=== PATIENT | female | born 1965 | race Hispanic/Latino ===

== ENCOUNTER 2016-10-30 20:45 | Inpatient (IN) | payer OTHER ==
[2016-10-30 21:30] LABS: Basophils % (Auto) 1.1 % (0.0-1.8); Eosinophils % (Auto) 1.3 % (0.0-4.3); Hematocrit 45.8 % (30.3-42.9); Hemoglobin 15.9 gm/dl (10.1-14.3); Mean Corpuscular HGB Conc 35 % (30-34); Mean Corpuscular Hemoglobin 31 pg (28-32); Mean Corpuscular Volume 90 fl (79-97); Platelet Count 211 K/mm3 (140-440); Red Blood Count 5.11 M/mm3 (3.65-5.03); Red Cell Distribution Width 14.4 % (13.2-15.2); White Blood Count 10.3 K/mm3 (4.5-11.0)
[2016-10-30 21:52] LABS: Anion Gap 23 mmol/L; BUN/Creatinine Ratio 18.33; Blood Urea Nitrogen 11 mg/dL (7-17); Calcium 9.4 mg/dL (8.4-10.2); Carbon Dioxide 21 mmol/L (22-30); Chloride 95.3 mmol/L (98-107); Glucose 411 mg/dL (65-100); Sodium 135 mmol/L (137-145)
[2016-10-30] MEDS ORDERED: ASPIRIN PO ONE (21:57)
[2016-10-30] MEDS ORDERED: NITRO-BID 2% TP ONE (21:57)
[2016-10-30] MEDS ORDERED: ZOFRAN IV ONE (21:57)
--- NOTE | 2016-10-30 22:01 | Emergency Department Report ---
ED Chest Pain HPI - General Chief Complaint: Chest Pain Stated Complaint: CHEST PAIN Time Seen by Provider: 10/30/16 21:49 Source: patient Mode of arrival: Ambulatory Limitations: No Limitations - History of Present Illness Initial Comments: 51 year old female with a past medical history hypertension, smoking, diabetes, and elevated cholesterol presents to the hospital complaints of chest pain 3 days. Pain is in the middle of the chest, described as intermittent tightness and exacerbated with activity. Pain radiates to both shoulders and rated moderate to severe in intensity. Patient noticing dyspnea and fatigue on exertion. Positive nausea without vomiting. Patient has been noncompliant with all her medications for the last 8 months and does not have a primary care doctors and she lost her insurance at this time. She reports a stress test approximately 4-5 years ago. Denies family history of CAD Severity scale (0 -10): 0 - Related Data Home Medications Medication Instructions Recorded Confirmed Last Taken No Known Home Medications [No 10/30/16 10/30/16 Unknown Reported Home Medications] Allergies Allergy/AdvReac Type Severity Reaction Status Date / Time tramadol HCl [From Ultram] Allergy Vomiting Verified 10/30/16 21:02 NIURKA score - Niurka Score Age > 65: (0) No Aspirin use within the Past 7 Days: (1) Yes 3 or more CAD Risk Factors: (1) Yes 2 or more Angina events in past 24 hrs: (1) Yes Known CAD with more than 50% Stenosis: (0) No Elevated Cardiac Markers: (0) No ST Deviation Greater than 0.5mm: (0) No NIURKA Score: 3 ED Review of Systems ROS: Stated complaint: CHEST PAIN Other details as noted in HPI Comment: All other systems reviewed and negative Other: Constitutional: No fevers chills. Weight loss reported Eyes: No eye pain visual changes ENT: No ear pain or throat pain Neck: Denies pain Respiratory: Denies cough wheezing Cardiovascular: Denies , palpitations, syncope GI: Denies abdominal pain,vomiting, diarrhea : Denies dysuria Musculoskeletal: Denies back pain, joint swelling Skin: Denies rash, lesions, erythema Neurologic: Denies headache, numbness, weakness Psychiatric: Denies suicidal ideation, hallucinations ED Past Medical Hx - Past Medical History Previous Medical History?: Yes Hx Hypertension: Yes Hx Diabetes: Yes Additional medical history: HIGH CHOLESTEROL - Surgical History Past Surgical History?: Yes Additional Surgical History: TUBAL LIGATION - Social History Smoking Status: Current Every Day Smoker Substance Use Type: Alcohol - Medications Home Medications: Home Medications Medication Instructions Recorded Confirmed Last Taken Type No Known Home Medications [No 10/30/16 10/30/16 Unknown History Reported Home Medications] ED Physical Exam - General Limitations: No Limitations - Other Other exam information: General: No limitations, patient is alert in no acute distress Head exam: Atraumatic, normocephalic Eyes exam: Normal appearance ENT: Moist mucous membrane, normal oropharynx Neck exam: Normal inspection, full range of motion, no meningismus nontender Respiratory exam: Clear to auscultation bilateral, no wheezes, rales, crackles Cardiovascular: Normal rate and rhythm, normal heart sounds Abdomen: Soft, nondistended, and nontender, with normal bowel sounds, no rebound, or guarding Extremity: Full range of motion normal inspection no deformity, no calf tenderness or edema Back: Normal Inspection, full range of motion, no tenderness Neurologic: Alert, oriented x3, cranial nerves intact, no motor or sensory deficit Psychiatric: normal affect, normal mood Skin: Warm, dry, intact ED Course Vital Signs 10/30/16 10/30/16 10/30/16 21:03 21:40 21:45 Temperature 97.8 F Pulse Rate 78 83 Respiratory 20 20 20 Rate Blood Pressure 221/93 Blood Pressure 182/90 [Left] O2 Sat by Pulse 98 97 Oximetry 10/30/16 22:23 Temperature Pulse Rate 79 Respiratory Rate Blood Pressure 182/90 Blood Pressure [Left] O2 Sat by Pulse Oximetry - Reevaluation(s) Reevaluation #1: 10/30/16 21:59 Aspirin, Nitropaste, Zofran, portable chest x-ray, regular insulin, and lovenox ordered - Consultations Consultation #1: 10/30/16 22:[address] Peralta. EKG reviewed. Recommends Lovenox twice a day initial dose orders. Plan for stress test in the a.m. ED Medical Decision Making - Lab Data Result diagrams: 10/30/16 21:16 10/30/16 21:16 Lab Results 10/30/16 10/30/16 Range/Units 21:16 21:16 WBC 10.3 (4.5-11.0) K/mm3 RBC 5.11 H (3.65-5.03) M/mm3 Hgb 15.9 H (10.1-14.3) gm/dl Hct 45.8 H (30.3-42.9) % MCV 90 (79-97) fl MCH 31 (28-32) pg MCHC 35 H (30-34) % RDW 14.4 (13.2-15.2) % Plt Count 211 (140-440) K/mm3 Lymph % (Auto) 42.5 H (13.4-35.0) % [place] % (Auto) 7.2 (0.0-7.3) % Eos % (Auto) 1.3 (0.0-4.3) % Baso % (Auto) 1.1 (0.0-1.8) % Lymph # 4.4 (1.2-5.4) K/mm3 [place] # 0.7 (0.0-0.8) K/mm3 Eos # 0.1 (0.0-0.4) K/mm3 Baso # 0.1 (0.0-0.1) K/mm3 Seg Neutrophils % 47.9 (40.0-70.0) % Seg Neutrophils # 4.9 (1.8-7.7) K/mm3 Sodium 135 L (137-145) mmol/L Potassium 4.0 (3.6-5.0) mmol/L Chloride 95.3 L (98-107) mmol/L Carbon Dioxide 21 L (22-30) mmol/L Anion Gap 23 mmol/L BUN 11 (7-17) mg/dL Creatinine 0.6 L (0.7-1.2) mg/dL Estimated GFR > 60 ml/min BUN/Creatinine Ratio 18.33 % Glucose 411 H (65-100) mg/dL Calcium 9.4 (8.4-10.2) mg/dL Troponin T < 0.010 (0.00-0.029) ng/mL - EKG Data -: EKG Interpreted by Me (sinus rate 83 septal infarct, inferior and ant- lateral T wave inversion) - EKG Data When compared to previous EKG there are: previous EKG unavailable - Radiology Data Radiology results: report reviewed (Cxr: naf) - Medical Decision Making Plans admit patient to hospital for further cardiac evaluation given her risk factors and abnormal EKG. Initial enzymes negative. Cardiology consulted - Differential Diagnosis my, unstable angina, PE, atypical chest pain, hypertensive emergency Critical Care Time: No Critical care attestation.: If time is entered above; I have spent that time in minutes in the direct care of this critically ill patient, excluding procedure time. ED Disposition Clinical Impression: Chest pain, Uncontrolled hypertension, Uncontrolled diabetes mellitus, Noncompliance with medication regimen, T wave inversion in EKG Disposition: OP ADMITTED IP TO THIS HOSP Is pt being admited?: Yes Condition: Stable Time of Disposition: 22:04 (Dr Reed/hosp)
[2016-10-30] MEDS ORDERED: LOVENOX SUB-Q ONE (22:14)
[2016-10-30] MEDS ORDERED: SODIUM CHLORIDE FLUSH SYRINGE 10 ML IV PRN (22:36)
[2016-10-30] MEDS ORDERED: NITROSTAT SL PRN (22:36)
[2016-10-30] MEDS ORDERED: D50W (25GM) IV PRN (22:52)
--- NOTE | 2016-10-31 00:36 | History and Physical Report ---
CHIEF COMPLAINT: Chest pain. HISTORY OF PRESENT ILLNESS: The patient is a 51-year-old female who said she has been having tightness in the chest going on and off for about 2-3 weeks, but became worse in the last 24-48 hours. Pain is exacerbated with activity and radiates to both shoulders and moderate in intensity and associated with shortness of breath, dizziness, nausea or diaphoresis, but no vomiting. The patient is noncompliant with medications for the last 6-8 months and does not have a primary care doctor. The patient has lost her insurance recently. The patient had a stress test done about 4-5 years ago. Denies history of fever or chills. Denies history of cough. She was evaluated in the Emergency Room and presented for admission. PAST MEDICAL HISTORY: Pertinent for hypertension, diabetes mellitus with noncompliance. Also, the patient has past medical history of high cholesterol. PAST SURGICAL HISTORY: Pertinent for tubal ligation. FAMILY HISTORY: Pertinent for cerebrovascular accident. SOCIAL HISTORY: The patient smokes cigarettes, drinks alcohol and does not use illicit drugs. MEDICATIONS: The patient has not been on any medications recently. ALLERGIES: The patient is allergic to TRAMADOL or ULTRAM. REVIEW OF SYSTEMS: CONSTITUTIONAL: There is no fever, no chills. Diaphoresis present. HEENT: There is no headache or sore throat. CARDIOVASCULAR SYSTEM: Chest pain present. No orthopnea. RESPIRATORY SYSTEM: Shortness of breath is present. There is no cough. GASTROINTESTINAL SYSTEM: There is nausea, but no vomiting, no abdominal pain, diarrhea or constipation. NEUROLOGICAL SYSTEM: Dizziness present. No altered mental status. MUSCULOSKELETAL SYSTEM: There is no joint pain or swelling. DERMATOLOGICAL SYSTEM: There is no skin rash or itching. GENITOURINARY SYSTEM: There is no dysuria, hematuria or flank pain. Rest of system review is normal. PHYSICAL EXAMINATION: GENERAL: At the time of exam, the patient was found to be alert, oriented x 3 and not in acute distress. VITAL SIGNS: Shows normal temperature of 97.8, pulse of 83, respirations of 20, blood pressure of 182/90, O2 sat of 97% on room air. HEENT: Show pupils to be equal, round, reactive to light and accommodating. Extraocular muscles are intact. NECK: Supple with no JVD or carotid bruit. CARDIOVASCULAR SYSTEM: Show first and second heart sounds with no gallops or murmur. RESPIRATORY SYSTEM: Show good air entry on both sides with no abnormal breath sounds. GASTROINTESTINAL SYSTEM: Show abdomen to be full, soft, and nontender with no organomegaly or rigidity. NEUROLOGICAL: Show no focal deficit. MUSCULOSKELETAL SYSTEM: Show no joint swelling or tenderness. DERMATOLOGICAL SYSTEM: Show no skin rash. GENITOURINARY SYSTEM: Showing no costovertebral angle tenderness. PERTINENT LABORATORY DATA: The patient has chemistry done with slight decrease in sodium of 135, normal potassium and low chloride of 95.3 and low CO2 of 21 with high glucose level of 411 and normal troponin level. CBC shows normal white count, high hemoglobin of 15.9, high hematocrit of 45.8. IMAGING STUDIES: The patient had a chest x-ray done with no report of any acute lesion from the Emergency Room. DIAGNOSES: 1. Chest pain, 2. Poorly controlled diabetes mellitus. PLAN: The patient will be admitted to medical floor on telemetry. Using chest pain pathway, he will be on IV morphine per chest pain protocol. The patient will also be on IV Zofran 4 mg every 6 hours for nausea and vomiting and will be on nitro paste 1 inch to anterior chest wall q.6 hours. The patient will be on Tylenol by mouth as needed for fever and headache and will be n.p.o. for Lexiscan stress test in the morning. The patient will be on Accu-Chek q.4 h. followed by low-dose sliding scale and will be on aspirin 325 mg by mouth daily. The patient will be on heparin 5000 units subQ q.12 for DVT prophylaxis and will continue Cardiology consult with Dr. Peralta, already put in by the Emergency Room doctor. The patient will have cardiac enzymes, troponin, and total CPK check q.6 hours x 2 more levels and will be on oxygen per chest pain protocol. JOB# [id number] OCN/NTS
[2016-10-31 00:45] LABS: Creatine Kinase 40 units/L (30-135)
[2016-10-31 00:46] LABS: Creatine Kinase MB < 1.0 ng/mL (0.0-4.0)
[2016-10-31] MEDS: MORPHINE IV PRN (05:19)
[2016-10-31] MEDS: NITRO-BID 2% TP SCH ×3 (05:21→17:58)
[2016-10-31] MEDS: APRESOLINE IV PRN ×2 (06:55→11:23)
[2016-10-31] MEDS ORDERED: LEXISCAN IV ONE ×2 (09:07→09:25)
--- NOTE | 2016-10-31 10:04 | XRay Report ---
AP CHEST : 10/30/16 20:45:00 CLINICAL: Chest pain and shortness of breath. COMPARISON:None FINDINGS: The heart is large. Normal pulmonary vessels. The lungs are normally expanded and clear. The bones and soft tissues are unremarkable. IMPRESSION: Cardiomegaly but no CHF.
--- NOTE | 2016-10-31 10:10 | Consultation ---
History of Present Illness Consult date: 10/31/16 Consult reason: chest pain History of present illness: Shortness breath with exertion of few weeks,with worsening chest pain (anterior chest pain,radiating to both arms)of few days duration.No previous hx.of similar symptoms. Past History Past Medical History: diabetes, hypertension Past Surgical History: Other (tubal ligation) Social history: (5 children.), smoking (since age 15.), alcohol abuse ( says drinks a lot.). denies: IV drug use Medications and Allergies Allergies Allergy/AdvReac Type Severity Reaction Status Date / Time tramadol HCl [From Ultram] Allergy Vomiting Verified 10/30/16 21:02 Home Medications Medication Instructions Recorded Confirmed Last Taken Type Aspirin [Aspirin BABY CHEW TAB] 81 mg PO QDAY #30 tab.chew 10/31/16 Unknown Rx AtorvaSTATin [Lipitor] 10 mg PO HS #30 tablet 10/31/16 Unknown Rx Bisoprolol Fumarate [Zebeta] 10 mg PO DAILY #30 tab 10/31/16 Unknown Rx Losartan [Cozaar] 25 mg PO QDAY #30 tablet 10/31/16 Unknown Rx glipiZIDE [Glucotrol] 10 mg PO QDAY #30 tablet 10/31/16 Unknown Rx metFORMIN [Glucophage] 500 mg PO BID #60 tablet 10/31/16 Unknown Rx Active Meds: Active Medications Aspirin (Ecotrin) 325 mg PO QDAY [facility] Dextrose (D50w (25gm)) 50 ml IV PRN PRN PRN Reason: Hypoglycemia Heparin Sodium (Porcine) (Heparin) 5,000 unit SUB-Q Q12HR [facility] Hydralazine HCl (Apresoline) 20 mg IV Q4HR PRN PRN Reason: Blood Pressure Last Admin: 10/31/16 06:55 Dose: 20 mg Insulin Human Regular (Novolin R) 0 units SUB-Q Q6HR [facility] PRN Reason: Protocol Last Admin: 10/31/16 06:54 Dose: Not Given Morphine Sulfate (Morphine) 2 mg IV Q5MIN PRN PRN Reason: Chest Pain Last Admin: 10/31/16 05:19 Dose: 2 mg Nitroglycerin (Nitrostat) 0.4 mg SL Q5M PRN PRN Reason: Chest Pain Nitroglycerin (Nitro-Bid 2%) 1 inch TP TIDNTG [facility] PRN Reason: Protocol Last Admin: 10/31/16 05:21 Dose: 1 inch Sodium Chloride (Sodium Chloride Flush Syringe 10 Ml) 10 ml IV PRN PRN PRN Reason: LINE FLUSH Review of Systems Constitutional: weight loss (lost lot of weight in last few weeks,unintentional. ) Ears, nose, mouth and throat: no ear discharge Breasts: deferred Cardiovascular: chest pain, shortness of breath Respiratory: no cough with sputum Gastrointestinal: nausea Genitourinary Female: no dysuria Rectal: no pain Musculoskeletal: neck stiffness, other (leg pains,not muscle pains according to her.) Integumentary: no rash Neurological: headaches Psychiatric: no memory loss Endocrine: no cold intolerance Hematologic/Lymphatic: no easy bruising Allergic/Immunologic: no urticaria Physical Examination Vital Signs Temp Pulse Resp BP Pulse Ox 97.8 F 78 20 221/93 98 10/30/16 21:03 10/30/16 21:03 10/30/16 21:03 10/30/16 21:03 10/30/16 21:03 General appearance: no acute distress HEENT: Positive: PERRL, Mucus Membranes Moist Neck: Positive: neck supple, trachea midline Cardiac: Positive: Reg Rate and Rhythm Lungs: Positive: clear to auscultation Neuro: Positive: Grossly Intact Abdomen: Positive: Unremarkable Female genitourinary: deferred Skin: Negative: Rash Extremities: Absent: edema Results 10/30/16 21:16 10/30/16 21:16 Cardiac Enzymes 10/31/16 Range/Units 00:07 CK-MB (CK-2) < 1.0 (0.0-4.0) ng/mL - Imaging and Cardiology EKG: image reviewed (S.R with deep T inversions in inferior and precordial leads c/w ischemia.) EKG interpretations - Telemetry EKG Rhythm: Sinus Rhythm Assessment and Plan - Patient Problems (1) Chest pain Current Visit: Yes Status: Acute Qualifiers: Chest pain type: C Plan to address problem: was admitted with chest pain 2 -3 weeks duration.Chest pains are consistent with crescendo angina,with multiple risk factors,(HTN,D.M and smoking), also iv Lexiscan MPI showed reversible apical defect.Would recommend cardiac cath .patient is willing to proceed with it. (2) Noncompliance with medication regimen Current Visit: Yes Status: Acute (3) T wave inversion in EKG Current Visit: Yes Status: Acute (4) Uncontrolled diabetes mellitus Current Visit: Yes Status: Acute Qualifiers: Diabetes mellitus type: D Diabetes mellitus complication status: D Diabetes mellitus complication detail: D Diabetic retinopathy severity: D Diabetes mellitus macular edema: D Diabetes mellitus tank terminal gauger insulin use: D Chronic kidney disease stage: C (5) Uncontrolled hypertension Current Visit: Yes Status: Acute
[2016-10-31] MEDS: HEPARIN SUB-Q SCH ×2 (11:19→21:18)
[2016-10-31] MEDS: ECOTRIN PO SCH (11:19)
[2016-10-31 11:53] LABS: Creatine Kinase MB 1.1 ng/mL (0.0-4.0)
[2016-10-31 11:54] LABS: Creatine Kinase 32 units/L (30-135)
--- NOTE | 2016-10-31 12:17 | Discharge Summary ---
Providers - Providers Date of Admission: 10/30/16 22:35 Date of discharge: 11/02/16 Attending physician: ANAMIKA TURPIN 10/30/16 Consult to Cardiac Rehabilitation [CONS] Routine Reason For Exam: Phase I Primary care physician: [facility] Hospitalization Condition: Stable Hospital course: Patient seen and examined. Patient complains of substernal chest pain, Cardiac enzymes negative, EKG abnormal, chest x-ray cardiomegaly without CHF. She is from [place], [place] and has been out of all her medications for some time now. She will go back to [place], [place]. She is on metformin bid, glyburide bid, bisoprolol daily, losartan daily and atorvastatin daily. She does not know the doses of any of her medications and needs all refilled. -Chest pain had positive stress test and went for Cardiac cath. 11/02/[address] Flaherty -Type 2 diabetes mellitus, uncontrolled -Accelerated Hypertension counseling restart her antihypertensive -DLP: statins -noncompliance counseling done Disposition: DISCHARGED TO HOME OR SELFCARE Time spent for discharge: 37 minutes Core Measure Documentation - Palliative Care Palliative Care/ Comfort Measures: Not Applicable - Core Measures Any of the following diagnoses?: none - VTE Discharge Requirements Deep Vein Thrombosis/Pulmonary Embolism Present on Admission: No Has pt received <5 days of overlap therapy or INR<2.0: No Anticoagulant overlap therapy prescribed at discharge: No Contraindication No Overlap Therapy order at DC: Not Indicated Exam - Physical Exam Narrative exam: GEN: WDWN, NAD, AWAKE, ALERT, ORIENTATED 3 CVS: RRR, NORMAL S1S2 LUNGS/CHEST: CTA B, NORMAL CHEST EXPANSION B, GOOD AIR ENTRY B, reproducible chest wall tenderness NEURO: CN 2-12 GROSSLY INTACT, NO new FOCAL DEFICITS PSY: CALM - Constitutional Vitals: Temp Pulse Resp BP Pulse Ox 98.1 F 73 16 205/92 97 10/31/16 11:17 10/31/16 11:17 10/31/16 11:17 10/31/16 11:23 10/31/16 11:17 Plan Activity: advance as tolerated (no strenous activites until cleared by PCP. ) Diet: low salt, diabetic Special Instructions: record daily BP diary, record blood sugar diary Follow up with: PRIMARY CARE, [Primary Care Provider] - 3-5 Days Prescriptions: RX: Aspirin [Aspirin BABY CHEW TAB] 81 mg PO QDAY #30 tab.chew RX: AtorvaSTATin [Lipitor] 10 mg PO HS #30 tablet Bisoprolol Fumarate [Zebeta] 10 mg PO DAILY #30 tab glipiZIDE [Glucotrol] 10 mg PO QDAY #30 tablet RX: Losartan [Cozaar] 25 mg PO QDAY #30 tablet RX: metFORMIN [Glucophage] 500 mg PO BID #60 tablet
[2016-10-31 12:33] LABS: Creatine Kinase 33 units/L (30-135); Creatine Kinase MB 1.1 ng/mL (0.0-4.0)
--- NOTE | 2016-10-31 13:46 | Progress Note ---
Assessment and Plan Assessment and plan: Patient seen and examined. Patient complains of substernal chest pain, which is totally reproducible. Cardiac enzymes negative, EKG abnormal, chest x-ray cardiomegaly without CHF. -Chest pain most likely costochondritis -Type 2 diabetes mellitus, uncontrolled -Accelerated Hypertension History Interval history: Pt seen and examined. f/u for cp which she has off and on, none currently. no n/ v/sob/cough. She is not up to date with preventive screening, which i spoke with her at length. Especially mammogram. She agreed and voiced understanding. Hospitalist Physical - Physical exam Narrative exam: GEN: WDWN, NAD, AWAKE, ALERT, ORIENTATED 3 CVS: RRR, NORMAL S1S2 LUNGS/CHEST: CTA B, NORMAL CHEST EXPANSION B, GOOD AIR ENTRY B, reproducible chest wall tenderness NEURO: CN 2-12 GROSSLY INTACT, NO new FOCAL DEFICITS PSY: CALM - Constitutional Vitals: Temp Pulse Resp BP Pulse Ox 98.1 F 73 16 205/92 97 10/31/16 11:17 10/31/16 11:17 10/31/16 11:17 10/31/16 11:23 10/31/16 11:17 General appearance: Present: no acute distress Results - Labs CBC & Chem 7: 10/30/16 21:16 10/30/16 21:16 Labs: Laboratory Last Values WBC 10.3 K/mm3 (4.5-11.0) 10/30/16 21:16 RBC 5.11 M/mm3 (3.65-5.03) H 10/30/16 21:16 Hgb 15.9 gm/dl (10.1-14.3) H 10/30/16 21:16 Hct 45.8 % (30.3-42.9) H 10/30/16 21:16 MCV 90 fl (79-97) 10/30/16 21:16 MCH 31 pg (28-32) 10/30/16 21:16 MCHC 35 % (30-34) H 10/30/16 21:16 RDW 14.4 % (13.2-15.2) 10/30/16 21:16 Plt Count 211 K/mm3 (140-440) 10/30/16 21:16 Lymph % (Auto) 42.5 % (13.4-35.0) H 10/30/16 21:16 [place] % (Auto) 7.2 % (0.0-7.3) 10/30/16 21:16 Eos % (Auto) 1.3 % (0.0-4.3) 10/30/16 21:16 Baso % (Auto) 1.1 % (0.0-1.8) 10/30/16 21:16 Lymph # 4.4 K/mm3 (1.2-5.4) 10/30/16 21:16 [place] # 0.7 K/mm3 (0.0-0.8) 10/30/16 21:16 Eos # 0.1 K/mm3 (0.0-0.4) 10/30/16 21:16 Baso # 0.1 K/mm3 (0.0-0.1) 10/30/16 21:16 Seg Neutrophils % 47.9 % (40.0-70.0) 10/30/16 21:16 Seg Neutrophils # 4.9 K/mm3 (1.8-7.7) 10/30/16 21:16 Sodium 135 mmol/L (137-145) L 10/30/16 21:16 Potassium 4.0 mmol/L (3.6-5.0) 10/30/16 21:16 Chloride 95.3 mmol/L (98-107) L 10/30/16 21:16 Carbon Dioxide 21 mmol/L (22-30) L 10/30/16 21:16 Anion Gap 23 mmol/L 10/30/16 21:16 BUN 11 mg/dL (7-17) 10/30/16 21:16 Creatinine 0.6 mg/dL (0.7-1.2) L 10/30/16 21:16 Estimated GFR > 60 ml/min 10/30/16 21:16 BUN/Creatinine Ratio 18.33 % 10/30/16 21:16 Glucose 411 mg/dL (65-100) H 10/30/16 21:16 POC Glucose 264 (70-105) H 10/31/16 05:41 Calcium 9.4 mg/dL (8.4-10.2) 10/30/16 21:16 Total Creatine Kinase 33 units/L (30-135) 10/31/16 11:53 CK-MB (CK-2) 1.1 ng/mL (0.0-4.0) 10/31/16 11:53 CK-MB (CK-2) Rel Index 3.3 (0-4) 10/31/16 11:53 Troponin T < 0.010 ng/mL (0.00-0.029) 10/31/16 11:53
[2016-10-31] MEDS: NORVASC PO SCH (14:30)
[2016-10-31] MEDS ORDERED: TYLENOL PO PRN (18:04)
[2016-10-31] MEDS ORDERED: NACL 0.9% 500 ML 500 ML IV SCH (20:00)
[2016-10-31] MEDS: LOPRESSOR PO SCH (21:17)
[2016-11-01] MEDS: APRESOLINE IV PRN (06:10)
[2016-11-01] MEDS ORDERED: TUMS PO ONE ×2 (09:55→13:00)
[2016-11-01] MEDS: MORPHINE IV PRN ×2 (10:08→22:02)
[2016-11-01] MEDS: NORVASC PO SCH ×2 (10:09→10:28)
[2016-11-01] MEDS: LOPRESSOR PO SCH ×2 (10:09→22:01)
[2016-11-01] MEDS: ECOTRIN PO SCH (10:09)
[2016-11-01] MEDS: HEPARIN SUB-Q SCH ×2 (10:27→22:02)
--- NOTE | 2016-11-01 10:43 | Progress Note ---
Assessment and Plan Assessment and plan: Patient seen and examined. Patient complains of substernal chest pain, Cardiac enzymes negative, EKG abnormal, chest x-ray cardiomegaly without CHF. Stress has abnormal cough cardiac catheterization tomorrow -Chest pain positive stress test for cardiac catheterization tomorrow -Type 2 diabetes mellitus, uncontrolled -Accelerated Hypertension History Interval history: Pt seen and examined. f/u for cp which she has off and on, none currently. no n/ v/sob/cough. She is not up to date with preventive screening, which i spoke with her at length. Especially mammogram. She agreed and voiced understanding. Hospitalist Physical - Physical exam Narrative exam: GEN: WDWN, NAD, AWAKE, ALERT, ORIENTATED 3 CVS: RRR, NORMAL S1S2 LUNGS/CHEST: CTA B, NORMAL CHEST EXPANSION B, GOOD AIR ENTRY B, reproducible chest wall tenderness NEURO: CN 2-12 GROSSLY INTACT, NO new FOCAL DEFICITS PSY: CALM - Constitutional Vitals: Temp Pulse Resp BP Pulse Ox 98.5 F 89 20 135/77 95 11/01/16 07:30 11/01/16 07:30 11/01/16 10:08 11/01/16 07:30 11/01/16 07:30 General appearance: Present: no acute distress Results - Labs CBC & Chem 7: 10/30/16 21:16 10/30/16 21:16 Labs: Laboratory Last Values WBC 10.3 K/mm3 (4.5-11.0) 10/30/16 21:16 RBC 5.11 M/mm3 (3.65-5.03) H 10/30/16 21:16 Hgb 15.9 gm/dl (10.1-14.3) H 10/30/16 21:16 Hct 45.8 % (30.3-42.9) H 10/30/16 21:16 MCV 90 fl (79-97) 10/30/16 21:16 MCH 31 pg (28-32) 10/30/16 21:16 MCHC 35 % (30-34) H 10/30/16 21:16 RDW 14.4 % (13.2-15.2) 10/30/16 21:16 Plt Count 211 K/mm3 (140-440) 10/30/16 21:16 Lymph % (Auto) 42.5 % (13.4-35.0) H 10/30/16 21:16 [place] % (Auto) 7.2 % (0.0-7.3) 10/30/16 21:16 Eos % (Auto) 1.3 % (0.0-4.3) 10/30/16 21:16 Baso % (Auto) 1.1 % (0.0-1.8) 10/30/16 21:16 Lymph # 4.4 K/mm3 (1.2-5.4) 10/30/16 21:16 [place] # 0.7 K/mm3 (0.0-0.8) 10/30/16 21:16 Eos # 0.1 K/mm3 (0.0-0.4) 10/30/16 21:16 Baso # 0.1 K/mm3 (0.0-0.1) 10/30/16 21:16 Seg Neutrophils % 47.9 % (40.0-70.0) 10/30/16 21:16 Seg Neutrophils # 4.9 K/mm3 (1.8-7.7) 10/30/16 21:16 Sodium 135 mmol/L (137-145) L 10/30/16 21:16 Potassium 4.0 mmol/L (3.6-5.0) 10/30/16 21:16 Chloride 95.3 mmol/L (98-107) L 10/30/16 21:16 Carbon Dioxide 21 mmol/L (22-30) L 10/30/16 21:16 Anion Gap 23 mmol/L 10/30/16 21:16 BUN 11 mg/dL (7-17) 10/30/16 21:16 Creatinine 0.6 mg/dL (0.7-1.2) L 10/30/16 21:16 Estimated GFR > 60 ml/min 10/30/16 21:16 BUN/Creatinine Ratio 18.33 % 10/30/16 21:16 Glucose 411 mg/dL (65-100) H 10/30/16 21:16 POC Glucose 293 (70-105) H 11/01/16 07:54 Calcium 9.4 mg/dL (8.4-10.2) 10/30/16 21:16 Total Creatine Kinase 33 units/L (30-135) 10/31/16 11:53 CK-MB (CK-2) 1.1 ng/mL (0.0-4.0) 10/31/16 11:53 CK-MB (CK-2) Rel Index 3.3 (0-4) 10/31/16 11:53 Troponin T < 0.010 ng/mL (0.00-0.029) 10/31/16 11:53
[2016-11-01] MEDS: PROTONIX PO SCH (13:29)
--- NOTE | 2016-11-01 16:23 | Progress Note ---
Assessment and Plan - Patient Problems (1) Chest pain Current Visit: Yes Status: Acute Qualifiers: Chest pain type: C Plan to address problem: was admitted with chest pain 2 -3 weeks duration.Chest pains are consistent with crescendo angina,with multiple risk factors,(HTN,D.M and smoking), also iv Lexiscan MPI showed reversible apical defect.Would recommend cardiac cath .patient is willing to proceed with it. 11/01/2016>Patient is stable,willing to proceed with cath in AM,is aware of alternative of medical therapy. (2) Noncompliance with medication regimen Current Visit: Yes Status: Acute (3) T wave inversion in EKG Current Visit: Yes Status: Acute (4) Uncontrolled diabetes mellitus Current Visit: Yes Status: Acute Qualifiers: Diabetes mellitus type: D Diabetes mellitus complication status: D Diabetes mellitus complication detail: D Diabetic retinopathy severity: D Diabetes mellitus macular edema: D Diabetes mellitus ferry terminal agent insulin use: D Chronic kidney disease stage: C (5) Uncontrolled hypertension Current Visit: Yes Status: Acute Subjective Date of service: 11/01/16 Interval history: had some epigastric discomfort,was given antacid.Telemetry shows S.R. Objective Vital Signs Temp Pulse Pulse Pulse Pulse Resp Resp 11/01/16 12:00 98 F 82 20 11/01/16 10:08 20 11/01/16 07:30 98.5 F 89 18 11/01/16 06:10 76 11/01/16 04:35 98.0 F 77 18 11/01/16 01:40 98.0 F 72 18 10/31/16 22:17 20 10/31/16 21:56 99.9 F H 106 H 20 10/31/16 21:17 106 H 20 20 10/31/16 20:52 10/31/16 20:15 104 H 18 10/31/16 19:33 103 H 10/31/16 17:37 16 BP BP Pulse Ox 11/01/16 12:00 132/76 99 11/01/16 10:08 11/01/16 07:30 135/77 95 11/01/16 06:10 189/86 11/01/16 04:35 189/86 95 11/01/16 01:40 188/84 95 10/31/16 22:17 10/31/16 21:56 133/77 97 10/31/16 21:17 133/77 10/31/16 20:52 98 10/31/16 20:15 99 10/31/16 19:33 10/31/16 17:37 131/63 98 - Physical Examination HEENT: Positive: PERRL, Mucus Membranes Moist Neck: Positive: neck supple, trachea midline Cardiac: Positive: Reg Rate and Rhythm Lungs: Positive: clear to auscultation Neuro: Positive: Grossly Intact Abdomen: Positive: Unremarkable Skin: Negative: Rash Extremities: Absent: edema - Imaging and Cardiology EKG: image reviewed (S.R with deep T inversions in inferior and precordial leads c/w ischemia.) - EKG Sinus rhythms and dysrhythmias: sinus rhythm
[2016-11-02] MEDS ORDERED: NACL 0.9% 500 ML 500 ML IV SCH (06:00)
[2016-11-02 06:02] LABS: INR 0.95 (0.87-1.13)
[2016-11-02 06:03] LABS: Partial Thromboplastin Time 24.2 Sec. (24.2-36.6)
[2016-11-02] MEDS ORDERED: ECOTRIN PO ONE (08:20)
[2016-11-02] MEDS: ECOTRIN PO SCH ×2 (08:26→19:44)
--- NOTE | 2016-11-02 09:04 | Progress Note ---
Assessment and Plan Assessment: Chest pain Abnormal stress test HTN DM Tobacco use - cessation encouraged. Plan: Currently stable cardiac status. Proceed with C this AM. Await findings. The patient has been seen in conjunction with Dr. Flaherty who agrees with the assessment and plan of care. Subjective Date of service: 11/02/16 Principal diagnosis: chest pain Interval history: Pt resting comfortably in ARU, no complaints, VSS, awaiting LHC. Has been NPO since HI. Objective Last Vital Signs Temp 98.6 F 11/02/16 06:20 Pulse 68 11/02/16 06:20 Resp 20 11/02/16 06:20 BP 153/74 11/02/16 06:20 Pulse Ox 100 11/02/16 06:20 - Physical Examination General: Appears Well, No Apparent Distress HEENT: Positive: PERRL, Mucus Membranes Moist Neck: Positive: neck supple, trachea midline Cardiac: Positive: Reg Rate and Rhythm, S1/S2 Lungs: Positive: Normal Exam, clear to auscultation, Normal Breath Sounds Neuro: Positive: Grossly Intact, Cranial Nerve 2-12 Intact Abdomen: Positive: Unremarkable, Soft, Active Bowel Sounds. Negative: Tender Skin: Negative: Rash Musculoskeletal: No Fluid Collection, No Pain, Normal Range of Motion Extremities: Present: upper extr. pulses, lower extr. pulses. Absent: edema - Labs and Meds Coagulation 11/02/16 Range/Units 05:19 PT 12.6 (12.2-14.9) Sec. INR 0.95 (0.87-1.13) APTT 24.2 (24.2-36.6) Sec. - Imaging and Cardiology EKG: image reviewed (S.R with deep T inversions in inferior and precordial leads c/w ischemia.) - Telemetry EKG Rhythm: Sinus Rhythm - EKG Sinus rhythms and dysrhythmias: sinus rhythm
--- NOTE | 2016-11-02 09:39 | Admit Criteria Form ---
Admission Criteria Documentation: CARDIOLOGY GRG Clinical Indications for Admission to Inpatient Care ( Place 'X' for any and all applicable criteria): Hospital admission is needed for appropriate care of the patient because of ANY ONE of the following (1): [ ] I. Hemodynamic instability as indicated by ALL of the following (1)(2)(3) (4)(5) [ ]a) Vital signs or other findings not as expected for chronic patient condition or baseline [ ]b) Instability indicated by ANY ONE of the following: [ ]i) Hypotension [ ]ii) Symptomatic Tachycardia unresponsive to treatment ( e.g., analgesia, fluids, sedation as indicated) [ ]iii) Inadequate perfusion indicated by ANY ONE of the following: [ ] 1) Lactic acidosis (> 2 mmol/L) [ ] 2) New abnormal capillary refill (> 3 seconds) [ ] 3) Reduced urine output [ ] 4) New altered mental status [ ]iv) Orthostatic vital sign changes unresponsive to treatment (e.g., fluids) [ ]v) IV inotropic or vasopressor medication required to maintain adequate blood pressure or perfusion [ ] II. Severe heart failure as indicated by ANY ONE of the following(17)(18) [ ]a) Respiratory distress [ ]b) Hypotension [ ]c) Anasarca (refractory to outpatient therapy) [ ]d) Cardiac arrhythmias of immediate concern [ ]e) Myocardial ischemia [ ] III. Cardiac arrhythmias or findings of immediate concern indicated by ANY ONE of the following (19)(20): [ ] a) Heart rhythms that are inherently dangerous or unstable indicated by ANY ONE of the following (21)(22)(23): [ ] i) Resuscitated ventricular fibrillation or cardiac arrest [ ] ii) Ventricular escape rhythm [ ] iii) Sustained ventricular tachycardia (30 seconds or more of ventricular rhythm at greater than 100 beats per minute) [ ] iv) Nonsustained ventricular tachycardia and ANY ONE of the following: [ ] 1) Suspected cardiac ischemia as cause or consequence of ventricular tachycardia [ ] 2) In setting of acute myocarditis [ ] b) Unstable cardiac conduction defects indicated by ANY ONE of the following(23)(24)(25) [ ] i) Type II second-degree atrioventricular block [ ]ii) Third-degree atrioventricular block [ ]iii) New-onset left bundle branch block with suspected myocardial ischemia [ ]c) Any heart rhythm and ANY ONE of the following (21)(22)(26)(27) (28) [ ] i) Continuous long-term ECG monitoring needed (e.g., initiation of drug requiring monitoring for more than 24 hours) [ ] ii) Patient has automatic implanted cardioverter defibrillator that is repeatedly firing, malfunctioning, or in need of immediate adjustment of settings beyond the scope of ambulatory or observation care [ ]d) Heart rhythms of concern due to ANY ONE of the following: [ ] i) Hypotension [ ] ii) Respiratory distress [ ] iii) Association with other significant symptoms (e.g., bradycardia with syncope or ongoing dizziness, supraventricular tachycardia with chest pain (14)(15)(17) [ ] IV. Monitoring for cardiac contusion beyond the scope of observation care needed [A](30)(31)(32) [ ] V. Surgical or device complication (e.g., valve replacement complication , pacemaker dysfunction) (35)(41)(44)(45)(46) [ ] . Inpatient palliative care needed. [B](49) Also use Inpatient Palliative Care Criteria [ ] VII. Nonbacterial thrombotic (marantic) endocarditis (36)(43)(47)(48) [ X] VIII. Cardiology condition, symptom, or finding for which emergency and observation care has failed or are not considered appropriate. [ ] IX. Acute valvular disease requiring inpatient as indicated by ANY ONE of the following (41) [ ]a) Acute valvular regurgitation (42) [ ]b) Noninfectious valvulitis (43) [ ]c) Obstructive valve thrombosis [ ]d) Paravalvular leak [ ]e) Other significant valvular disorder remaining after emergency or observation level of care (as appropriate) [ ]X. Pericardial disease requiring inpatient treatment as indicated by ANY ONE of the following (33)(34)(35)(36)(37) [ ]a) Suspected tamponade (38)(39)(40) [ ]b) Hemopericardium [ ]c) Other significant pericardial disorder remaining after emergency or observation level of care (as appropriate) [ ] XI. Cardiac ischemia beyond scope of emergency and observation care. [ ] XII. Hypertension requiring inpatient treatment as indicated by ANY ONE of the following (6)(7)(8) [ ]a) SBP greater than 220 mm Hg or DBP greater than 120 mmHg despite treatment [ ]b) SBP greater than 140 mm Hg or DBP greater than 100 mm Hg with evidence of acute end organ damage as indicated by ANY ONE of the following [ ] i) Altered mental status [ ] ii) Acute renal failure as indicated by new onset of ANY ONE of the following (9)(10)(11)(12)(13) [ ]1) 3-fold rise in serum creatinine from baseline [ ]2) Serum creatinine greater than 4 mg/dL ( 354 micromoles/L) with acute rise greater than 0.5 mg/dL (44.2 micromoles/L) [ ]3) Reduction of more than 75% in estimated glomerular filtration rate from baseline [ ]4) Estimated glomerular filtration rate less than 35 mL/min/1.73m2 (0.59 mL/sec/1.73m2) in child up to 18 years of age [ ]5) Cessation of urine output indicated by ALL of the following [ ]A. Adequate volume status [ ]B. Inadequate urine output as indicated by ANY ONE of the following [ ]a. Urine output less than 0.3 mL/kg/hr for 24 hours [ ]b. Anuria (urine output less than 0.1 mL/kg/hr) for 12 hours [ ] iii) Aortic dissection [ ] iv) Myocardial Ischemia [ ] v) Left ventricular heart failure [ ]vi) Retinal Hemorrhage [ ]vii) Other significant finding [ ]c) Hypertension in child requiring inpatient treatment as indicated by ALL of the following(14)(15)(16) [ ] i) Outpatient treatment not effective, not available, or not appropriate [ ]ii) SBP or DBP greater than 95th percentile for age [ ]iii) Evidence of acute end organ damage as indicated by ANY ONE of the following [ ]1) Altered mental status [ ]2) Acute renal failure as indicated by new onset of ANY ONE of the following(9)(10)(11)(12)(13) [ ]A. 3-fold rise in serum creatinine from baseline [ ]B. Serum creatinine greater than 4 mg/dL (354 micromoles/L) with acute rise greater than 0.5 mg/dL (44.2 micromoles/L) [ ]C. Reduction of more than 75% in estimated glomerular filtration rate from baseline [ ]D. Estimated glomerular filtration rate less than 35 mL/min/1.73m2 (0.59 mL/sec/1.73m2) in child up to 18 years of age [ ]E. Cessation of urine output indicated by ALL of the following [ ]a. Adequate volume status [ ]b. Inadequate urine output as indicated by ANY ONE of the following [ ]i) Urine output less than 0.3 mL/kg/hr for 24 hours [ ]ii) Anuria ( urine output less than 0.1 mL/kg/hr) for 12 hours [ ]3) Severe headache [ ]4) Visual disturbance [ ]5) Retinal hemorrhage [ ]6) Other significant finding [ ]XIII. Complications of transplanted heart indicated by ANY ONE of the following(61): [ ]a) Acute graft rejection requiring inpatient management (eg, intravenous immunosuppression)(62)(63) [ ]b) Acute graft heart failure indicated by ANY ONE of the following(64): [ ]i) Hemodynamic instability [ ]ii) Cardiac arrhythmias of immediate concern [ ]iii) Pulmonary edema that is very severe (eg, mechanical ventilation needed, imminent or likely, need for 100% oxygen to keep oxygen saturation above 90%) [ ]iv) Pulmonary edema that is persistent as indicated by ALL of the following: [ ]1) New need for oxygen therapy to keep oxygen saturation above 90% (or increased FiO2 need from baseline) [ ]2) Has not improved sufficiently with emergency department or observation care IV diuretics or other heart failure treatments[E] [ ]v) Altered mental status that is severe or persistent [ ]vi) Increased creatinine (new on laboratory test) with reduction of more than 50% in estimated glomerular filtration rate from baseline [ ]vii) Progressively (ongoing) rising creatinine (known from past laboratory test) with reduction of more than 25% in estimated glomerular filtration rate from baseline [ ]viii) Acute renal failure [ ]ix) Acute peripheral ischemia (eg, examination shows pulseless, cool, mottled, or cyanotic extremity) [ ]x) Pulmonary artery catheter monitoring needed [ ]xi) Other sign or symptom of heart failure requiring inpatient treatment (ie, too severe or not responsive to outpatient and observation care treatment) [ ]c) Infection requiring inpatient management (eg, Hemodynamic instability, need for intravenous antimicrobial treatment)(66)(67)(68)(69)(70) [ ]d) Cardiac allograft vasculopathy requiring inpatient management ( eg evidence of cardiac ischemia)(71) [ ]e) Other complication of transplanted heart (eg, stroke, severe pulmonary hypertension, severe valvular dysfunction) requiring inpatient management(72) The original [facility] [employer] content created by [facility] has been revised. The portions of the content which have been revised are identified through the use of italic text or in bold, and [facility] has neither reviewed nor approved the modified material. All other unmodified content is copyright [facility] [employer]. Please see references footnoted in the original [facility] [employer] edition 2016 Admission Criteria Met: Yes
[2016-11-02 09:47] LABS: Anion Gap 18 mmol/L; Blood Urea Nitrogen 14 mg/dL (7-17); Calcium 9.1 mg/dL (8.4-10.2); Carbon Dioxide 24 mmol/L (22-30); Chloride 100.3 mmol/L (98-107); Glucose 237 mg/dL (65-100); Potassium 4.4 mmol/L (3.6-5.0); Sodium 138 mmol/L (137-145)
[2016-11-02] MEDS ORDERED: HEPARIN/NS 5000 UNIT/500ML(CATH LAB) 1,000 ML IR ONE ×3 (09:56→12:32)
[2016-11-02] MEDS: SUBLIMAZE ONE ×2 (10:18→10:46)
[2016-11-02] MEDS: VERSED ONE ×2 (10:18→11:12)
[2016-11-02] MEDS: XYLOCAINE 2% INFILTRATI ONE ×2 (10:19→10:25)
[2016-11-02] MEDS: CALAN ONE ×3 (10:20→10:28)
[2016-11-02] MEDS: HEPARIN 10,000 UNITS/10 ML ONE ×2 (10:20→10:25)
[2016-11-02] MEDS: NITROGLYCERIN SYRINGE 3 ML ONE ×2 (10:22→10:28)
[2016-11-02] MEDS ORDERED: NACL 0.9% 250ML 0 ML ONE (10:31)
[2016-11-02] MEDS ORDERED: NACL 0.9% 50 ML ONE (10:32)
[2016-11-02] MEDS: ANGIOMAX IV ONE ×2 (10:44→10:45)
[2016-11-02] MEDS ORDERED: NITROGLYCERIN SYRINGE 3 ML ONE (10:53)
[2016-11-02] MEDS ORDERED: NITROSTAT SL ONE ×2 (10:54→12:46)
[2016-11-02] MEDS ORDERED: SUBLIMAZE ONE (10:56)
[2016-11-02] MEDS ORDERED: AGGRASTAT DRIP (12.5 MG/250 ML) 12,500 MCG/250 ML BAG IV ONE (10:59)
[2016-11-02] MEDS ORDERED: PLAVIX ONE (10:59)
[2016-11-02] MEDS ORDERED: APRESOLINE ONE (11:03)
[2016-11-02] MEDS ORDERED: TRIDIL DRIP 50MG/250ML 50 MG/250 ML BOTTLE ONE (11:04)
[2016-11-02] MEDS ORDERED: ALUM-MAG HYDROX-SIMETH 200-200-20MG/5ML ONE (11:22)
[2016-11-02] MEDS ORDERED: NEO SYNEPHRINE ONE (12:13)
[2016-11-02] MEDS ORDERED: NACL 0.9% 100 ML ONE (12:13)
[2016-11-02] MEDS ORDERED: XYLOCAINE 2% INFILTRATI ONE (12:32)
[2016-11-02] MEDS ORDERED: MORPHINE ONE (12:52)
--- NOTE | 2016-11-02 12:56 | Cardiac Catherization Report ---
LEFT HEART CATHETERIZATION/INTRAVASCULAR ULTRASOUND REPORT/ PERCUTANEOUS CORONARY INTERVENTION REPORT. CLINICAL INFORMATION: This is a 51-year-old -[place] female with a history of hypertension, diabetes, cholesterol, and smoker presents with chest pain with abnormal stress test in the anterior and inferior region of ischemia and moderate ischemia is noted. Left heart cath performed via the right radial artery, sterile technique, local anesthesia, 5-Omani radial sheath inserted. Left system was engaged with a JL3.5 catheter. FINDINGS: Left main is a large caliber vessel that is patent, bifurcates into a medium to large caliber LAD, which has a proximal 95% lesion. Rest of the LAD from the mid to distal is large caliber patent, small ramus with diffuse disease patent, small diagonal 1 is patent, vessel that is patent. Circumflex and AV groove is a medium caliber vessel patent with [id number] luminal irregularities bifurcates into a small to medium caliber OM1 with upper and lower branches that are patent with mild luminal irregularities. Distal surface small caliber vessel that is patent. RCA engaged with JR4 catheter, is a large dominant vessel, diffuse disease, mid focal 90% lesion, distal patent. PDA and PLV are medium caliber vessels that are patent with multiple branches. LV gram done in the SETS[place] and GARNER view shows normal EF 55-60%, LVEDP is 17 mmHg, LV is 175/17, and aortic is 170/86. No gradient across the aortic valve on pullback. PERCUTANEOUS CORONARY INTERVENTION OF THE LAD with IVUS. 1. 5-Omani radial sheath changed over for 6-Omani radial sheath. 2. Engage the left system with EBU 3.5 guiding catheter. 3. Intracoronary nitroglycerin was given. No resolution of stenosis. 4. Cross distal LAD with short Brandon wire. 5. Predilated with 2.5 x 8 balloon at 10 atmospheres. 6. Intravascular ultrasound showed diffuse disease with distal reference vessel of 3.3 x 3.0 and proximal 4.0 x 3.5, but diffuse diseased all the way up to the ostium. 7. Stented with a drug-eluting Resolute 3.0 x 18 in the proximal section up to the ostium inflated at 15 atmospheres. 8. Postdilated with 3.5 x 12 noncompliant balloon at 15 to 12 atmospheres from distal to proximal portion of the stent. 9. Repeat old intravascular ultrasound showed stent was well opposed and expanding all the way up to the ostium of the LAD. 10. Repeat angiogram with excellent angiographic result. No dissection or perforation noted. Continue NIURKA 3 flow and reduced stenosis to 0%. 11. Coronary wire was removed. Multiple angiograms, continue NIURKA 3 flow, good stent apposition and expansion noted. A 6-Omani guiding catheter taken over a guidewire. PERCUTANEOUS CORONARY INTERVENTION OF THE RCA 1. Engaged RCA with 6-Omani JR4 guiding catheter. 2. Crossed to the distal PDA with a short Brandon wire. 3. Predilated with 2.5 x 8 balloon. 4. An intravascular ultrasound showed diffuse disease reference vessel of 3.0 x 3.2. 5. Stented the mid RCA with a drug-eluting Resolute 3.0 x 15 at 10 atmospheres. 6. Excellent angiographic result, good stent apposition and expansion. No dissection or perforation. Reduced stenosis down to 0%. 7 Coronary wire was removed. Multiple angiograms, continued NIURKA 3 flow. No dissection or perforation noted. 8. 6-Omani guiding catheter taken over a guidewire. The patient's chest pain was improving and the patient received intravenous Aggrastat and IV nitro for BP control and antiplatelets. 9. 6-Omani radial sheath was discontinued. Radial band applied. No hematoma. No bleeding. SUMMARY: 1. Successful PCI of the proximal LAD with a drug-eluting Resolute 3.0 x 18, post-dilated with 3.5 x 12 x2 inflations. IVUS confirmed. 2. Left main patent LAD mid to distal patent [id number] luminal irregularities going to lcx OM1. 3. RCA mid has successful PCI with drug-eluting Resolute 3.0 x 15 at 10 atmospheres. Intravascular ultrasound done. 4. Normal LV function. 5. Post-PCI care aspirin and Plavix. Discussed in detail with the patient need for compliance of medication, IV hydration, Aggrastat, nitro, and IV fluids post-PCI care in the unit. JOB# [id number] LUZMA/TOÑO BURGER
--- NOTE | 2016-11-02 12:56 | Progress Note ---
Assessment and Plan Assessment and plan: Patient seen and examined. Patient complains of substernal chest pain, Cardiac enzymes negative, EKG abnormal, chest x-ray cardiomegaly without CHF. Stress test was abnormal, for cardiac catheterization today -Chest pain positive stress test for cardiac catheterization -Type 2 diabetes mellitus, uncontrolled -Accelerated Hypertension History Interval history: Pt seen and examined. f/u for cp which she has off and on, none currently. no n/ v/sob/cough. She is not up to date with preventive screening, which i spoke with her at length. Especially mammogram. She agreed and voiced understanding. Hospitalist Physical - Physical exam Narrative exam: GEN: WDWN, NAD, AWAKE, ALERT, ORIENTATED 3 CVS: RRR, NORMAL S1S2 LUNGS/CHEST: CTA B, NORMAL CHEST EXPANSION B, GOOD AIR ENTRY B, reproducible chest wall tenderness NEURO: CN 2-12 GROSSLY INTACT, NO new FOCAL DEFICITS PSY: CALM - Constitutional Vitals: Temp Pulse Resp BP Pulse Ox 98.6 F 82 20 153/74 98 11/02/16 06:20 11/02/16 10:00 11/02/16 10:00 11/02/16 06:20 11/02/16 10:00 General appearance: Present: no acute distress Results - Labs CBC & Chem 7: 10/30/16 21:16 11/02/16 Unknown Labs: Laboratory Last Values WBC 10.3 K/mm3 (4.5-11.0) 10/30/16 21:16 RBC 5.11 M/mm3 (3.65-5.03) H 10/30/16 21:16 Hgb 15.9 gm/dl (10.1-14.3) H 10/30/16 21:16 Hct 45.8 % (30.3-42.9) H 10/30/16 21:16 MCV 90 fl (79-97) 10/30/16 21: MCH 31 pg (28-32) 10/30/16 21:16 MCHC 35 % (30-34) H 10/30/16 21:16 RDW 14.4 % (13.2-15.2) 10/30/16 21:16 Plt Count 211 K/mm3 (140-440) 10/30/16 21:16 Lymph % (Auto) 42.5 % (13.4-35.0) H 10/30/16 21:16 [place] % (Auto) 7.2 % (0.0-7.3) 10/30/16 21:16 Eos % (Auto) 1.3 % (0.0-4.3) 10/30/16 21:16 Baso % (Auto) 1.1 % (0.0-1.8) 10/30/16 21:16 Lymph # 4.4 K/mm3 (1.2-5.4) 10/30/16 21:16 [place] # 0.7 K/mm3 (0.0-0.8) 10/30/16 21:16 Eos # 0.1 K/mm3 (0.0-0.4) 10/30/16 21:16 Baso # 0.1 K/mm3 (0.0-0.1) 10/30/16 21:16 Seg Neutrophils % 47.9 % (40.0-70.0) 10/30/16 21:16 Seg Neutrophils # 4.9 K/mm3 (1.8-7.7) 10/30/16 21:16 PT 12.6 Sec. (12.2-14.9) 11/02/16 05:19 INR 0.95 (0.87-1.13) 11/02/16 05:19 APTT 24.2 Sec. (24.2-36.6) 11/02/16 05:19 Activated Clotting Time 389 (74-137) H 11/02/16 11:04 Sodium 138 mmol/L (137-145) 11/02/16 Unknown Potassium 4.4 mmol/L (3.6-5.0) 11/02/16 Unknown Chloride 100.3 mmol/L (98-107) 11/02/16 Unknown Carbon Dioxide 24 mmol/L (22-30) 11/02/16 Unknown Anion Gap 18 mmol/L 11/02/16 Unknown BUN 14 mg/dL (7-17) 11/02/16 Unknown Creatinine 0.5 mg/dL (0.7-1.2) L 11/02/16 Unknown Estimated GFR > 60 ml/min 11/02/16 Unknown BUN/Creatinine Ratio 28.00 % 11/02/16 Unknown Glucose 237 mg/dL (65-100) H 11/02/16 Unknown POC Glucose 255 (70-105) H 11/02/16 06:46 Calcium 9.1 mg/dL (8.4-10.2) 11/02/16 Unknown Total Creatine Kinase 33 units/L (30-135) 10/31/16 11:53 CK-MB (CK-2) 1.1 ng/mL (0.0-4.0) 10/31/16 11:53 CK-MB (CK-2) Rel Index 3.3 (0-4) 10/31/16 11:53 Troponin T < 0.010 ng/mL (0.00-0.029) 10/31/16 11:53
[2016-11-02] MEDS ORDERED: ZOFRAN IV PRN (12:57)
[2016-11-02] MEDS ORDERED: ECOTRIN PO SCH (12:59)
[2016-11-02] MEDS ORDERED: NORCO 5/325 ONE (13:33)
[2016-11-02] MEDS: NORCO 5/325 PO PRN ×2 (13:38→21:18)
[2016-11-02] MEDS ORDERED: XANAX PO PRN (13:56)
--- NOTE | 2016-11-02 14:52 | Cardiac Catherization Report ---
NAME OF PROCEDURE: Repeat heart catheterization. CLINICAL INFORMATION: This is a 51-year-old female who via the right radial approach had PCI of the LAD and RCA with drug-eluting stents, 3.0 x 18 in LAD and 3.0 x 15 in RCA, presents with recurrent chest pain, was diaphoretic, brought back to the corn lab technician an hour and an half after the procedure. DESCRIPTION AND FINDINGS OF PROCEDURE: The procedure was done via the right femoral artery, sterile technique, local anesthesia, 5-Chilean groin sheath inserted. Left system engaged with JL4. The left main is large and patent LAD. Proximal stent is wildly patent, no dissection and continued NIURKA 3 flow and no stenosis noted. The mid LAD is patent. Diagonal 1 is a small caliber vessel, it is patent. Diagonal 2 is a small caliber vessel, is patent. Circumflex is patent with mild luminal irregularities. OM1 is patent with luminal irregularities. RCA engaged with JR4, is a large dominant vessel, proximal with mild luminal irregularities. Mid stent widely patent, distal patent. PDA and PLV are [id number] caliber vessel, it is patent. LV gram done in CLAIRE and GARNER view shows normal LV function. No wall motion. LVEDP 11 mmHg. Aortic is 210/79. No gradient across the aortic valve on pullback. 5-Chilean catheters were taken over a guidewire, 5-Chilean groin sheath was sewn in and will be discontinued with manual pressure held. SUMMARY: The patient with recurrent chest pain, was brought back emergently to corn lab technician, which revealed left main patent, LAD stent patent, circumflex patent, RCA mid stent patent with normal LV function. RECOMMENDATION: Continue medical management. JOB# [id number] LUZMA/TOÑO
[2016-11-02] MEDS: PROTONIX PO SCH (14:54)
[2016-11-02] MEDS: LOPRESSOR PO SCH ×2 (14:56→21:17)
[2016-11-02 17:03] LABS: Hematocrit 42.7 % (30.3-42.9); Hemoglobin 14.6 gm/dl (10.1-14.3); Mean Corpuscular HGB Conc 34 % (30-34); Mean Corpuscular Hemoglobin 31 pg (28-32); Mean Corpuscular Volume 89 fl (79-97); Platelet Count 211 K/mm3 (140-440); Red Blood Count 4.78 M/mm3 (3.65-5.03); Red Cell Distribution Width 14.4 % (13.2-15.2); White Blood Count 10.5 K/mm3 (4.5-11.0)
[2016-11-02] MEDS: HEPARIN SUB-Q SCH ×2 (17:48→21:17)
[2016-11-02] MEDS: NORVASC PO SCH (17:49)
--- NOTE | 2016-11-02 19:33 | Treadmill Report ---
IV LEXISCAN MYOCARDIAL PERFUSION IMAGING Pharmacological myocardial perfusion imaging was performed for evaluation of chest pain. Baseline EKG showed sinus rhythm at a rate of 72 beats per minute with suggestion of old anteroseptal ME and T-inversions in the inferior and precordial leads. No chest pain with IV Lexiscan injection. No significant change from baseline EKG on vasodilation. Nuclear images were obtained at rest and after vasodilation. This showed small to medium sized apical moderately reversible defect consistent with ischemia. Ejection fraction was 75%. No wall motion abnormalities noted. JOB# [id number] THOMAS/TOÑO
[2016-11-03] MEDS: NORCO 5/325 PO PRN (03:37)
[2016-11-03] MEDS: APRESOLINE IV PRN (03:49)
--- NOTE | 2016-11-03 07:48 | XRay Report ---
AP CHEST: HISTORY: Recent catheterization, chest pain AP view of the chest demonstrates a normal mediastinal and cardiac contour with clear lungs and normal bony and soft tissue structures. IMPRESSION: Unremarkable AP chest.
[2016-11-03 07:56] LABS: Basophils % (Auto) 0.7 % (0.0-1.8); Eosinophils % (Auto) 1.1 % (0.0-4.3); Hematocrit 42.4 % (30.3-42.9); Hemoglobin 14.3 gm/dl (10.1-14.3); Mean Corpuscular HGB Conc 34 % (30-34); Mean Corpuscular Hemoglobin 30 pg (28-32); Mean Corpuscular Volume 90 fl (79-97); Platelet Count 189 K/mm3 (140-440); Red Blood Count 4.73 M/mm3 (3.65-5.03); Red Cell Distribution Width 14.5 % (13.2-15.2); White Blood Count 8.7 K/mm3 (4.5-11.0)
[2016-11-03 08:10] LABS: Creatine Kinase MB 4.3 ng/mL (0.0-4.0)
[2016-11-03 08:13] LABS: Anion Gap 15 mmol/L; Blood Urea Nitrogen 16 mg/dL (7-17); Calcium 8.6 mg/dL (8.4-10.2); Carbon Dioxide 25 mmol/L (22-30); Creatine Kinase 42 units/L (30-135); Glucose 330 mg/dL (65-100); Potassium 4.1 mmol/L (3.6-5.0); Sodium 136 mmol/L (137-145)
--- NOTE | 2016-11-03 09:36 | Discharge Summary ---
Providers - Providers Date of Admission: 10/30/16 22:35 Date of discharge: 11/03/16 Attending physician: ASHLI CANNON MD 10/30/16 Consult to Cardiac Rehabilitation [CONS] Routine Reason For Exam: Phase I 11/02/16 Consult to Cardiac Rehabilitation [CONS] Routine Reason For Exam: post pci Primary care physician: WEEDER THINNER Hospitalization Reason for admission: CHEST PAIN Condition: Stable Hospital course: Patient is a 51-year-old female who presented to the hospital complaint of chest pain going on for about 3 weeks on and off for some last 24-48 hours. The patient was seen by cardiology with a stress test showing reversible apical defect and proceeded to have a cardiac cath where she got Roxanol 95% LAD and 90 % mid RCA stents placed. Extensive discussion with the patient revealed that she has not been taking her medication due to cost. We did change on her medications to the following medications. Counseling as this was provided to the patient. Today she is clinically stable for discharge of this report to follow up with her primary care physician and her director of product marketing in her [place]. Continue ASA, plavix, statin, lopressor. D/c losartan and initiate low dose lisinopril, 5mg daily, as lisinopril is more affordable for pt at this time Discharge diagnosis * ACS * CAD S/P PCI * ACUTE DIASTOLIC HEART FAILURE * T wave inversion * Noncompliance with medications * Hypertensive urgency * UNControlled diabetes mellitus * Tobacco abuse extensive time 15 minutes spent cessation counseling Disposition: DISCHARGED TO HOME OR SELFCARE Time spent for discharge: 35 mins Core Measure Documentation - Palliative Care Palliative Care/ Comfort Measures: Not Applicable - Core Measures Any of the following diagnoses?: none - VTE Discharge Requirements Deep Vein Thrombosis/Pulmonary Embolism Present on Admission: No Exam - Physical Exam Narrative exam: VITAL SIGNS: Reviewed. GENERAL: The patient appeared well nourished and normally developed. Vital signs as documented. HEAD: No signs of head trauma. EYES: Pupils are equal. Extraocular motions intact. EARS: Hearing grossly intact. MOUTH: Oropharynx is normal. NECK: No adenopathy, no JVD. CHEST: Chest with clear breath sounds bilaterally. No wheezes, rales, or rhonchi. CARDIAC: Regular rate and rhythm. S1 and S2, without murmurs, gallops, or rubs. VASCULAR: No Edema. Peripheral pulses normal and equal in all extremities. ABDOMEN: Soft, without detectable tenderness. No sign of distention. No rebound or guarding, and no masses palpated. Bowel Sounds normal. MUSCULOSKELETAL: Good range of motion of all major joints. Extremities without clubbing, cyanosis or edema. NEUROLOGIC EXAM: Alert and oriented x 3. No focal sensory or strength deficits. Speech normal. Follows commands. PSYCHIATRIC: Mood normal. SKIN: No rash or lesions. - Constitutional Vitals: Temp Pulse Resp BP Pulse Ox 97.3 F L 80 20 126/64 98 11/03/16 03:53 11/03/16 06:35 11/03/16 04:37 11/03/16 06:35 11/03/16 03:53 Plan Activity: advance as tolerated, fall precautions Diet: low fat, low salt Special Instructions: record daily BP diary, record blood sugar diary Follow up with: MOISES HUGHES MD [Staff Physician] - 7 Days PRIMARY CARE, [Primary Care Provider] - 3-5 Days Forms: [facility] PCI D/C Instructions Prescriptions: ALPRAZolam [Xanax TAB] 0.5 mg PO Q12H PRN #10 tablet PRN Reason: Anxiety amLODIPine [Norvasc] 10 mg PO QDAY #30 tablet Aspirin [Aspirin TAB] 325 mg PO QDAY #30 tablet Bisoprolol Fumarate [Zebeta] 10 mg PO DAILY #30 tab Carvedilol [Coreg] 12.5 mg PO BID #60 tablet Clopidogrel [Plavix] 75 mg PO QDAY #30 tablet glipiZIDE [Glucotrol] 10 mg PO QDAY #30 tablet Lisinopril [Zestril TAB] 5 mg PO QDAY #30 tab metFORMIN [Glucophage] 500 mg PO BID #60 tablet Pantoprazole [Protonix TAB] 40 mg PO QDAY #30 tablet
[2016-11-03] MEDS ORDERED: PLAVIX PO SCH (10:00)
--- NOTE | 2016-11-03 10:18 | Progress Note ---
Assessment and Plan Assessment: CAD, s/p PCI - s/p LHC via right radial, lt main patent, lad proximal 95% pci of lad with cricket resolute 3.0 x 18 mm and post 3.5 x 12 and lcx patant with mild luminal irregularities and om1 patent and rca mid 90% pci of rca with cricket resolute 3.0 x15 mm and normal lv function Chest pain - resolved. HTN DM Tobacco use - cessation encouraged. Plan: Currently stable cardiac status. Pt may discharge home from cardiology standpoint. Cont ASA, plavix, statin, lopressor. D/c losartan and initiate low dose lisinopril, 5mg daily, as lisinopril is more affordable for pt at this time. Pt to follow up with a specialist wound care near her home in [place], [place]. Follow up with specialist wound care within 1-2 weeks hospital discharge recommended to pt, pt verbalizes understanding. The patient has been seen in conjunction with Dr. Flaherty who agrees with the assessment and plan of care. Subjective Date of service: 11/03/16 Principal diagnosis: chest pain Interval history: Pt resting comfortably in bed, no complaints, VSS. s/p LHC with PCI yesterday. Right radial and right femoral LHC sites c/d/i, some mild ecchymosis noted. Pt states she is ready to go home. Objective Last Vital Signs Temp 97.3 F L 11/03/16 03:53 Pulse 80 11/03/16 06:35 Resp 20 11/03/16 04:37 BP 126/64 11/03/16 06:35 Pulse Ox 98 11/03/16 03:53 - Physical Examination General: Appears Well, No Apparent Distress HEENT: Positive: PERRL, Mucus Membranes Moist Neck: Positive: neck supple, trachea midline Cardiac: Positive: Reg Rate and Rhythm, S1/S2 Lungs: Positive: Normal Exam, clear to auscultation, Normal Breath Sounds Neuro: Positive: Grossly Intact, Cranial Nerve 2-12 Intact Abdomen: Positive: Unremarkable, Soft, Active Bowel Sounds. Negative: Tender Skin: Negative: Rash Musculoskeletal: No Fluid Collection, No Pain, Normal Range of Motion Extremities: Present: upper extr. pulses, lower extr. pulses. Absent: edema - Labs and Meds Cardiac Enzymes 11/03/16 Range/Units 06:39 CK-MB (CK-2) 4.3 H (0.0-4.0) ng/mL CBC 11/02/16 11/03/16 Range/Units 16:44 06:39 WBC 10.5 8.7 (4.5-11.0) K/mm3 RBC 4.78 4.73 (3.65-5.03) M/mm3 Hgb 14.6 H 14.3 (10.1-14.3) gm/dl Hct 42.7 42.4 (30.3-42.9) % Plt Count 211 189 (140-440) K/mm3 Lymph # 2.8 (1.2-5.4) K/mm3 [place] # 0.7 (0.0-0.8) K/mm3 Eos # 0.1 (0.0-0.4) K/mm3 Baso # 0.1 (0.0-0.1) K/mm3 Comprehensive Metabolic Panel 11/03/16 Range/Units 06:39 Sodium 136 L (137-145) mmol/L Potassium 4.1 (3.6-5.0) mmol/L Chloride 100.0 (98-107) mmol/L Carbon Dioxide 25 (22-30) mmol/L BUN 16 (7-17) mg/dL Creatinine 0.5 L (0.7-1.2) mg/dL Glucose 330 H (65-100) mg/dL Calcium 8.6 (8.4-10.2) mg/dL - Imaging and Cardiology EKG: image reviewed (S.R with deep T inversions in inferior and precordial leads c/w ischemia.) - Telemetry EKG Rhythm: Sinus Rhythm - EKG Sinus rhythms and dysrhythmias: sinus rhythm
[2016-11-03 10:22] VITALS: BP 157/79
[2016-11-03] MEDS: LOPRESSOR PO SCH (10:22)
[2016-11-03] MEDS: PROTONIX PO SCH (10:23)
[2016-11-03] MEDS: NORVASC PO SCH (10:24)
[2016-11-03] MEDS: HEPARIN SUB-Q SCH (10:55)
== END 2016-11-03 13:46 | disposition home or self-care (01) | DRG 247 ==
LOC: ED 20:45 → 4A 22:35
PROVIDERS: ADMIT Internal Medicine; ATTEND Internal Medicine
PROC: 027135Z Dilation of Coronary Artery, Two Arteries with Two Drug-eluting Intraluminal Devices, Percutaneous Approach (ICD-10-PCS; principal; 2016-11-02)
PROC: 4A023N7 Measurement of Cardiac Sampling and Pressure, Left Heart, Percutaneous Approach (ICD-10-PCS; 2016-11-02)
PROC: B2111ZZ Fluoroscopy of Multiple Coronary Arteries using Low Osmolar Contrast (ICD-10-PCS; 2016-11-02)
PROC: B2151ZZ Fluoroscopy of Left Heart using Low Osmolar Contrast (ICD-10-PCS; 2016-11-02)
DX: I25.10 Atherosclerotic heart disease of native coronary artery without angina pectoris (principal); E11.65 Type 2 diabetes mellitus with hyperglycemia; I10 Essential (primary) hypertension; F17.210 Nicotine dependence, cigarettes, uncomplicated; F10.10 Alcohol abuse, uncomplicated; E78.00 Pure hypercholesterolemia, unspecified; I51.7 Cardiomegaly; Z91.14 Patient's other noncompliance with medication regimen; Z88.6 Allergy status to analgesic agent; Z98.51 Tubal ligation status; Z82.3 Family history of stroke
CPT/HCPCS: 36415; 71010; 78452; 80048; 82550; 82553; 82962; 84484; 85025; 85027; 85347; 85610; 85730; 92928; 92929; 92978; 92979; 93005; 93010; 93017; 93458; 96374; 96375; 99406; A9270-GY; A9502; C1725; C1753; C1769; C1874; C1887; C1894; C9600; C9601; J0360; J0583; J1644; J1650; J1815; J2250; J2270; J2370; J2405; J2785; J3010; J3246; J7040; J7050; Q9967